=== PATIENT | female | born 1970 | race Caucasian/White ===

== ENCOUNTER 2016-05-28 19:54 | Emergency (ER) | payer SELFPAY ==
[~2016-05-28 19:54] MED LIST: PROZ20CA11 PO
--- NOTE | 2016-05-28 21:20 | REP ---
Clinical: Trauma. Technique: AP, lateral, bilateral oblique views of the right ankle. Findings: Lateral soft tissue swelling consistent with inversion injury. No acute fracture or dislocation identified. Joint spaces and ankle mortise appear intact. Impression: Lateral soft tissue swelling. Signed by Kurt Garcia MD 05/28/2016 09:11 P
[2016-05-28] MEDS ORDERED: ACETAMINOPHEN/CODEINE #3 TABLET (BULK) As Ordered ONE (21:48)
[2016-05-28] MEDS ORDERED: ACETAMINOPH W/CODEINE #3 TAB UD As Ordered ONE ×2 (21:48→21:49)
--- NOTE | 2016-05-28 22:12 | EDDOCDS ---
Physician Documentation [facility] Name: Mary Huerta Age: 45 yrs Sex: Female : 1970 Arrival Date: 05/28/2016 Time: 19:54 Bed 14 Private MD: No Pcp Disposition: 05/28 21:38 Critical Care: Critical care not applicable. pc Disposition: 05/28/16 21:44 Discharged to Home/Self Care. Impression: Sprain of calcaneofibular ligament of right ankle. - Condition is Stable. - Discharge Instructions: Ankle Sprain, Crutch Use, Stirrup Ankle Brace. - Prescriptions for Ibuprofen 600 mg Oral Tablet - take 1 tablet by ORAL route every 6 hours As needed take with food; 30 tablet. Tylenol- Codeine #3 300-30 mg Oral Tablet - take 2 tablets by ORAL route every 6 hours As needed MDD: 8 tabs; 20 tablet. - Medication Reconciliation, Local Pharmacy Hours, Work Release Form - 3 day form. - Follow up: Orthopaedics, [facility]; When: Call to arrange an appointment; Reason: Recheck today's complaints, To establish care. - Problem is new. - Symptoms have improved. HPI: 21:38 This 45 yrs old Female presents to ER via Walkin/Carried/Asstd with pc complaints of Ankle Injury. 21:38 The history is obtained from the patient. She was walking down stairs, thought she was pc on the last stepped and slipped/fell down the last 2-3 steps. She rolled her ankle inward and felt a "pop". She struck her head but did not have any LOC and does not have any headache or neck pain. At their worst, the symptoms were a 6 out of 10. In the emergency department, the symptoms are a 6 out of 10. The patient has not experienced similar symptoms in the past. Historical: - Allergies: Bees; - Home Meds: 1. Prozac 20 mg Oral cap 1 cap once daily - PMHx: Depression; - PSHx: Laparoscopy; Colonoscopy; ; Hysterectomy; Bladder suspension; - The history from nurses notes was reviewed: and I agree with what is documented. - Social history: Smoking status: Patient uses tobacco products, current every day smoker. No barriers to communication noted, The patient speaks fluent Amharic. - : The pt / caregiver states he / she is not on anticoagulants. Home medication list is obtained from the patient. - Hospitalizations: : No recent hospitalization is reported. - Exposure Risk Screening:: None identified. - Immunization history:: All immunizations up-to-date. - Family history: Not pertinent. - Social history:: the patient smokes cigarettes the patient drinks alcohol, socially. 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 pc Exam: 21:38 General Appearance: alert, the patient is in mild distress. pc 21:38 EENT: normal eye inspection, ears, nose and throat normal, pharynx normal, mucous membranes moist 21:38 Neck: The exam reveals no acute abnormalities. ROM is normal and painless. No nuchal rigidity is noted.. 21:38 Extremities: grossly normal except: noted in the right ankle: pain, swelling, ROM decreased due to pain, NVT normal. 21:38 Neuro: no motor deficits, no sensory deficits. Vital Signs: 19:55 BP 138 / 86; Pulse 101; Resp 18 S; Temp 99.5(T); Pulse Ox 96% on R/A; Weight 62.14 kg / dd6 137 lbs (R); Height 5 ft. 5 in. (165.10 cm) (R); 22:02 BP 139 / 84; Pulse 76; Resp 18; Temp 97.5(O); Pulse Ox 96% on R/A; Pain 5/10; prudencio 19:55 Body Mass Index 22.80 (62.14 kg, 165.10 cm) dd6 MDM: 20:08 Ankle, Complete Ordered. EDMS 21:38 Differential Diagnosis: fall, right ankle sprain r/o fracture. Plan: imaging, meds. pc Data reviewed: old medical records, vital signs, nurses notes, all radiology studies and available results. Test interpretation: X-RAY - interpreted by Radiologist and personally reviewed, Ankle Right STS. The patient has been re-examined and re-evaluated. The patient's symptoms have markedly improved after treatment. Disposition: The historical points, examination findings, and any diagnostic results supporting the provided diagnosis, were discussed with the patient or legal guardian. The need for outpatient follow up with the provider listed on their discharge instructions was discussed. They were encouraged to return to [facility], or the nearest ED, if symptoms worsen/persist, or for any other questions/concerns. 21:43 Apply Air Cast to Patient. ordered. pc 21:43 Crutches ordered. pc 21:43 Acetaminophen-Codeine 300 mg-30 mg 2 tabs PO once ordered. pc 21:43 Acetaminophen-Codeine, 4 pack- 300 mg-30 mg 1 packets PO once; Dispense with patient. pc Take per package instructions. ordered. 21:43 Ankle, Complete Reviewed. pc Administered Medications: 21:55 Drug: Acetaminophen-Codeine 2 tabs [acetaminophen 300 mg-codeine 30 mg tablet (2 tabs)] jf3 Route: PO; 21:55 Drug: Acetaminophen-Codeine, 4 pack- 1 packets [acetaminophen 300 mg-codeine 30 mg jf3 tablet (1 tabs)] {Co-Signature: cf2 (Korin East RN).} Route: PO; Signatures: Dispatcher [employer] Gerson Bourne MD MD pc Smith, Mallory, RN RN ms18 Brendan Medina RN RN jf3 Korin East RN cf2 GALLO
--- NOTE | 2016-05-28 22:12 | EDDOCDS ---
Nurse's Notes [facility] Name: Mary Huerta Age: 45 yrs Sex: Female : 1970 Arrival Date: 05/28/2016 Time: 19:54 Bed 14 Private MD: No Pcp Diagnosis: Sprain of calcaneofibular ligament of right ankle Presentation: 05/28 20:00 Presenting complaint: Patient states: that she fell down 3 steps and rolled her R ankle ms18 and hit her head on the door. The patients lower extremity appears normal on examination. Adult Sepsis Screening: The patient does not have new or worsening altered mentation. Patient's respiratory rate is less than 22. Systolic blood pressure is greater than 100. Patient has a qSOFA score of 0- Negative Sepsis Screen. Suicide/Homicide risk assessment- the patient denies having any suicidal and/or homicidal ideations and does not present with any other emotional, behavioral or mental health complaints. Status: Patient is not a financial service representative or dependent. Transition of care: patient was not received from another setting of care. 20:00 Acuity: STEPHON Level 4 ms18 20:00 Method Of Arrival: Walkin/Carried/Asstd ms18 Triage Assessment: 20:03 General: Appears in no apparent distress, uncomfortable, Behavior is appropriate for ms18 age, cooperative. Pain: Location: right lateral malleolus Pain currently is 9 out of 10 on a pain scale. HIV screening NA for this visit Offered previously. Neurological: No deficits noted. Respiratory: No deficits noted. Derm: Skin is pink, warm & dry. Musculoskeletal: Capillary refill < 3 seconds Range of motion limited in right ankle No deformity noted Swelling present in right lateral malleolus Reports pain in right ankle. 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 Prozac 20 mg Oral cap 1 cap once daily - PMHx: Depression; - PSHx: Laparoscopy; Colonoscopy; ; Hysterectomy; Bladder suspension; - The history from nurses notes was reviewed: and I agree with what is documented. - Social history: Smoking status: Patient uses tobacco products, current every day smoker. No barriers to communication noted, The patient speaks fluent Turkish. - : The pt / caregiver states he / she is not on anticoagulants. Home medication list is obtained from the patient. - Hospitalizations: : No recent hospitalization is reported. - Exposure Risk Screening:: None identified. - Immunization history:: All immunizations up-to-date. - Family history: Not pertinent. - Social history:: the patient smokes cigarettes the patient drinks alcohol, socially. Screenin:09 Screening information is obtained from the patient. Fall risk: No risks identified. jf3 Assistance ADL's: requires no assistance with activities of daily living. Abuse/DV Screen: The patient / caregiver reports he/she is: not in a situation that causes fear, pain or injury. Nutritional screening: No deficits noted. Advance Directives: There is no active DNR order. home support is adequate. Assessment: 22:09 General: Appears in no apparent distress, comfortable, Behavior is cooperative. Pain: jf3 Location: right ankle Pain currently is 6 out of 10 on a pain scale. Neurological: Level of Consciousness is awake, alert, Oriented to person, place, time. Cardiovascular: Capillary refill < 3 seconds Chest pain is denied. Respiratory: Airway is patent Respiratory effort is even, unlabored, Respiratory pattern is regular, symmetrical, Denies shortness of breath at rest. Derm: Skin is pink, warm & dry. Musculoskeletal: Circulation, motion, and sensation intact Capillary refill < 3 seconds Signs and Symptoms of Compartment Syndrome: no signs of compartment syndrome. Vital Signs: 19:55 BP 138 / 86; Pulse 101; Resp 18 S; Temp 99.5(T); Pulse Ox 96% on R/A; Weight 62.14 kg dd6 (R); Height 5 ft. 5 in. (165.10 cm) (R); 22:02 BP 139 / 84; Pulse 76; Resp 18; Temp 97.5(O); Pulse Ox 96% on R/A; Pain 5/10; prudencio 19:55 Body Mass Index 22.80 (62.14 kg, 165.10 cm) dd6 Vitals: 19:55 Log In Time: May 28, 2016 at 19:53. dd6 ED Course: 19:55 Patient visited by Orlando Orellana PCA. dd6 19:55 No Pcp is Private Physician. dd6 19:55 Patient moved to Waiting dd6 19:57 Patient moved to Pre RCE dd6 20:03 Triage Initiated ms18 21:31 Patient moved to ar3 21:33 Gerson Figueroa MD is Attending Physician. pc 21:33 Patient visited by Gerson Figueroa MD. pc 21:39 Ankle, Complete Returned. EDMS [facility] pc 22:03 Patient visited by Yessenia Andujar PCA. prudencio 22:09 The patient / caregiver is instructed regarding the plan of care and ED course. jf3 22:09 No IV's were initiated during this patient's visit. No procedures done that require jf3 assistance. 22:11 Korin East,RN is Primary Nurse. cf2 22:11 Patient visited by Korin East,ANA MARIA. cf2 Administered Medications: 21:55 Drug: Acetaminophen-Codeine 2 tabs [acetaminophen 300 mg-codeine 30 mg tablet (2 tabs)] jf3 Route: PO; 21:55 Drug: Acetaminophen-Codeine, 4 pack- 1 packets [acetaminophen 300 mg-codeine 30 mg jf3 tablet (1 tabs)] {Co-Signature: cf2 (Korin East RN).} Route: PO; Order Results: Radiology Order: Ankle, Complete Test: Ankle, Complete REASON FOR EXAMINATION: Trauma; Clinical: Trauma.; ; Technique: AP, lateral, bilateral oblique views of the right ankle.; ; Findings: Lateral soft tissue swelling consistent with inversion injury. No; acute fracture or dislocation identified. Joint spaces and ankle mortise appear; intact.; ; Impression:; Lateral soft tissue swelling.; ; ; Signed by; Kurt Garcia MD 05/28/2016 09:11 P; Outcome: 21:44 Discharge ordered by Provider. pc 22:09 Discharge Assessment: Patient awake, alert and oriented x 3. No cognitive and/or jf3 functional deficits noted. Patient verbalized understanding of disposition instructions. patient administered narcotics - yes. Pt provided with safe discharge. The following High Risk Discharge criteria are identified: None. Discharged to home via wheelchair, with friend. Condition: stable. Discharge instructions given to patient, Instructed on discharge instructions, follow up and referral plans. medication usage, no driving heavy equipment, Rest, Ice, Compression and Elevation. Demonstrated understanding of instructions, medications, Pt was receptive of discharge instructions/ teaching. No special radiology studies were completed. Property :Personal belongings accompany Pt. 22:12 Patient left the ED. jf3 Signatures: Dispatcher [employer] EDMS Gerson Figueroa MD MD pc Orlando Orellana, GASOLINE DRAGLINE OPERATOR GASOLINE DRAGLINE OPERATOR dd6 Lena Burton, GASOLINE DRAGLINE OPERATOR GASOLINE DRAGLINE OPERATOR ar3 Yessenia Andujar, GASOLINE DRAGLINE OPERATOR GASOLINE DRAGLINE OPERATOR prudencio Mary FergusonRN RN ms18 Brendan Medina,ANA MARIA RN jf3 Korin East RN RN cf2 Korin East RN cf2 MTDD
--- NOTE | 2016-05-30 23:13 | EDDOCDS ---
Nurse's Notes [facility] Name: Mary Huerta Age: 45 yrs Sex: Female : 1970 Arrival Date: 05/28/2016 Time: 19:54 Bed 14 Private MD: No Pcp Diagnosis: Sprain of calcaneofibular ligament of right ankle Presentation: 05/28 20:00 Presenting complaint: Patient states: that she fell down 3 steps and rolled her R ankle ms18 and hit her head on the door. The patients lower extremity appears normal on examination. Adult Sepsis Screening: The patient does not have new or worsening altered mentation. Patient's respiratory rate is less than 22. Systolic blood pressure is greater than 100. Patient has a qSOFA score of 0- Negative Sepsis Screen. Suicide/Homicide risk assessment- the patient denies having any suicidal and/or homicidal ideations and does not present with any other emotional, behavioral or mental health complaints. Status: Patient is not a director volunteer services or dependent. Transition of care: patient was not received from another setting of care. 20:00 Acuity: STEPHON Level 4 ms18 20:00 Method Of Arrival: Walkin/Carried/Asstd ms18 Triage Assessment: 20:03 General: Appears in no apparent distress, uncomfortable, Behavior is appropriate for ms18 age, cooperative. Pain: Location: right lateral malleolus Pain currently is 9 out of 10 on a pain scale. HIV screening NA for this visit Offered previously. Neurological: No deficits noted. Respiratory: No deficits noted. Derm: Skin is pink, warm & dry. Musculoskeletal: Capillary refill < 3 seconds Range of motion limited in right ankle No deformity noted Swelling present in right lateral malleolus Reports pain in right ankle. 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 Prozac 20 mg Oral cap 1 cap once daily - PMHx: Depression; - PSHx: Laparoscopy; Colonoscopy; ; Hysterectomy; Bladder suspension; - The history from nurses notes was reviewed: and I agree with what is documented. - Social history: Smoking status: Patient uses tobacco products, current every day smoker. No barriers to communication noted, The patient speaks fluent American. - : The pt / caregiver states he / she is not on anticoagulants. Home medication list is obtained from the patient. - Hospitalizations: : No recent hospitalization is reported. - Exposure Risk Screening:: None identified. - Immunization history:: All immunizations up-to-date. - Family history: Not pertinent. - Social history:: the patient smokes cigarettes the patient drinks alcohol, socially. Screenin:09 Screening information is obtained from the patient. Fall risk: No risks identified. jf3 Assistance ADL's: requires no assistance with activities of daily living. Abuse/DV Screen: The patient / caregiver reports he/she is: not in a situation that causes fear, pain or injury. Nutritional screening: No deficits noted. Advance Directives: There is no active DNR order. home support is adequate. Assessment: 22:09 General: Appears in no apparent distress, comfortable, Behavior is cooperative. Pain: jf3 Location: right ankle Pain currently is 6 out of 10 on a pain scale. Neurological: Level of Consciousness is awake, alert, Oriented to person, place, time. Cardiovascular: Capillary refill < 3 seconds Chest pain is denied. Respiratory: Airway is patent Respiratory effort is even, unlabored, Respiratory pattern is regular, symmetrical, Denies shortness of breath at rest. Derm: Skin is pink, warm & dry. Musculoskeletal: Circulation, motion, and sensation intact Capillary refill < 3 seconds Signs and Symptoms of Compartment Syndrome: no signs of compartment syndrome. 22:11 General: Aircast applied to right ankle. Crutch training performed. Patient tolerated cf2 well. ++PMS to right foot before and after application. . Vital Signs: 19:55 BP 138 / 86; Pulse 101; Resp 18 S; Temp 99.5(T); Pulse Ox 96% on R/A; Weight 62.14 kg dd6 (R); Height 5 ft. 5 in. (165.10 cm) (R); 22:02 BP 139 / 84; Pulse 76; Resp 18; Temp 97.5(O); Pulse Ox 96% on R/A; Pain 5/10; prudencio 19:55 Body Mass Index 22.80 (62.14 kg, 165.10 cm) dd6 Vitals: 19:55 Log In Time: May 28, 2016 at 19:53. dd6 ED Course: 19:55 Patient visited by Orlando Orellana PCA. dd6 19:55 No Pcp is Private Physician. dd6 19:55 Patient moved to Waiting dd6 19:57 Patient moved to Pre RCE dd6 20:03 Triage Initiated ms18 21:31 Patient moved to 14 ar3 21:33 Gerson Figureoa MD is Attending Physician. pc 21:33 Patient visited by Gerson Figueroa MD. pc 21:39 Ankle, Complete [facility]ed. ED[facility] pc 22:03 Patient visited by Yessenia Andujar PCA. prudencio 22:09 The patient / caregiver is instructed regarding the plan of care and ED course. jf3 22:09 No IV's were initiated during this patient's visit. No procedures done that require jf3 assistance. 22:11 Korin East,RN is Primary Nurse. cf2 22:11 Patient visited by Korin East,ANA MARIA. cf2 22:22 [facility] Payment Agreement was scanned into [employer] and attached to record. gjb Administered Medications: 21:55 Drug: Acetaminophen-Codeine 2 tabs [acetaminophen 300 mg-codeine 30 mg tablet (2 tabs)] jf3 Route: PO; 21:55 Drug: Acetaminophen-Codeine, 4 pack- 1 packets [acetaminophen 300 mg-codeine 30 mg jf3 tablet (1 tabs)] {Co-Signature: cf2 (Korin East RN).} Route: PO; Order Results: Radiology Order: Ankle, Complete Test: Ankle, Complete REASON FOR EXAMINATION: Trauma; Clinical: Trauma.; ; Technique: AP, lateral, bilateral oblique views of the right ankle.; ; Findings: Lateral soft tissue swelling consistent with inversion injury. No; acute fracture or dislocation identified. Joint spaces and ankle mortise appear; intact.; ; Impression:; Lateral soft tissue swelling.; ; ; Signed by; Kurt Garcia MD 05/28/2016 09:11 P; Outcome: 21:44 Discharge ordered by Provider. pc 22:09 Discharge Assessment: Patient awake, alert and oriented x 3. No cognitive and/or jf3 functional deficits noted. Patient verbalized understanding of disposition instructions. patient administered narcotics - yes. Pt provided with safe discharge. The following High Risk Discharge criteria are identified: None. Discharged to home via wheelchair, with friend. Condition: stable. Discharge instructions given to patient, Instructed on discharge instructions, follow up and referral plans. medication usage, no driving heavy equipment, Rest, Ice, Compression and Elevation. Demonstrated understanding of instructions, medications, Pt was receptive of discharge instructions/ teaching. No special radiology studies were completed. Property :Personal belongings accompany Pt. 22:12 Patient left the ED. jf3 Signatures: Dispatcher [employer] EDMS Gerson Figueroa MD MD pc Desormeau, Daniell, PLANT CULTURE MANAGER PLANT CULTURE MANAGER dd6 Lena Burton, PLANT CULTURE MANAGER PLANT CULTURE MANAGER ar3 Yessenia Andujar, PLANT CULTURE MANAGER PLANT CULTURE MANAGER Mary Jiménez,RN RN ms18 Brendan Medina,RN RN jf3 Kylie Hussein Christina, RN RN cf2 Korin East RN cf2 Chart Complete MTDD
--- NOTE | 2016-05-30 23:13 | EDDOCDS ---
Physician Documentation [facility] Name: Mary Huerta Age: 45 yrs Sex: Female : 1970 Arrival Date: 05/28/2016 Time: 19:54 Bed 14 Private MD: No Pcp Disposition: 05/28 21:38 Critical Care: Critical care not applicable. pc Disposition: 05/28/16 21:44 Discharged to Home/Self Care. Impression: Sprain of calcaneofibular ligament of right ankle. - Condition is Stable. - Discharge Instructions: Ankle Sprain, Crutch Use, Stirrup Ankle Brace. - Prescriptions for Ibuprofen 600 mg Oral Tablet - take 1 tablet by ORAL route every 6 hours As needed take with food; 30 tablet. Tylenol- Codeine #3 300-30 mg Oral Tablet - take 2 tablets by ORAL route every 6 hours As needed MDD: 8 tabs; 20 tablet. - Medication Reconciliation, Local Pharmacy Hours, Work Release Form - 3 day form. - Follow up: Orthopaedics, [facility]; When: Call to arrange an appointment; Reason: Recheck today's complaints, To establish care. - Problem is new. - Symptoms have improved. HPI: 21:38 This 45 yrs old Female presents to ER via Walkin/Carried/Asstd with pc complaints of Ankle Injury. 21:38 The history is obtained from the patient. She was walking down stairs, thought she was pc on the last stepped and slipped/fell down the last 2-3 steps. She rolled her ankle inward and felt a "pop". She struck her head but did not have any LOC and does not have any headache or neck pain. At their worst, the symptoms were a 6 out of 10. In the emergency department, the symptoms are a 6 out of 10. The patient has not experienced similar symptoms in the past. Historical: - Allergies: Bees; - Home Meds: 1. Prozac 20 mg Oral cap 1 cap once daily - PMHx: Depression; - PSHx: Laparoscopy; Colonoscopy; ; Hysterectomy; Bladder suspension; - The history from nurses notes was reviewed: and I agree with what is documented. - Social history: Smoking status: Patient uses tobacco products, current every day smoker. No barriers to communication noted, The patient speaks fluent Khmer. - : The pt / caregiver states he / she is not on anticoagulants. Home medication list is obtained from the patient. - Hospitalizations: : No recent hospitalization is reported. - Exposure Risk Screening:: None identified. - Immunization history:: All immunizations up-to-date. - Family history: Not pertinent. - Social history:: the patient smokes cigarettes the patient drinks alcohol, socially. 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 pc Exam: 21:38 General Appearance: alert, the patient is in mild distress. pc 21:38 EENT: normal eye inspection, ears, nose and throat normal, pharynx normal, mucous membranes moist 21:38 Neck: The exam reveals no acute abnormalities. ROM is normal and painless. No nuchal rigidity is noted.. 21:38 Extremities: grossly normal except: noted in the right ankle: pain, swelling, ROM decreased due to pain, NVT normal. 21:38 Neuro: no motor deficits, no sensory deficits. Vital Signs: 19:55 BP 138 / 86; Pulse 101; Resp 18 S; Temp 99.5(T); Pulse Ox 96% on R/A; Weight 62.14 kg / dd6 137 lbs (R); Height 5 ft. 5 in. (165.10 cm) (R); 22:02 BP 139 / 84; Pulse 76; Resp 18; Temp 97.5(O); Pulse Ox 96% on R/A; Pain 5/10; prudencio 19:55 Body Mass Index 22.80 (62.14 kg, 165.10 cm) dd6 MDM: 20:08 Ankle, Complete Ordered. EDMS 21:38 Differential Diagnosis: fall, right ankle sprain r/o fracture. Plan: imaging, meds. pc Data reviewed: old medical records, vital signs, nurses notes, all radiology studies and available results. Test interpretation: X-RAY - interpreted by Radiologist and personally reviewed, Ankle Right STS. The patient has been re-examined and re-evaluated. The patient's symptoms have markedly improved after treatment. Disposition: The historical points, examination findings, and any diagnostic results supporting the provided diagnosis, were discussed with the patient or legal guardian. The need for outpatient follow up with the provider listed on their discharge instructions was discussed. They were encouraged to return to [facility], or the nearest ED, if symptoms worsen/persist, or for any other questions/concerns. 21:43 Apply Air Cast to Patient. ordered. pc 21:43 Crutches ordered. pc 21:43 Acetaminophen-Codeine 300 mg-30 mg 2 tabs PO once ordered. pc 21:43 Acetaminophen-Codeine, 4 pack- 300 mg-30 mg 1 packets PO once; Dispense with patient. pc Take per package instructions. ordered. 21:43 Ankle, Complete Reviewed. pc 22:22 [facility] Payment Agreement was scanned into [employer] and attached to record. gjbenito 22: Financial registration complete. gjb Administered Medications: 21:55 Drug: Acetaminophen-Codeine 2 tabs [acetaminophen 300 mg-codeine 30 mg tablet (2 tabs)] jf3 Route: PO; 21:55 Drug: Acetaminophen-Codeine, 4 pack- 1 packets [acetaminophen 300 mg-codeine 30 mg jf3 tablet (1 tabs)] {Co-Signature: cf2 (Korin East RN).} Route: PO; Signatures: Dispatcher [employer] Gerson Bourne MD MD pc Smith, Mallory, RN RN ms18 Brendan Medina RN RN jf3 Kylie Husseinb Korin East RN cf2 The chart was reviewed and I authenticate all verbal orders and agree with the evaluation and treatment provided.Attachments: :22 [facility] Payment Agreement gj Chart Complete MTDD
--- NOTE | 2016-05-30 23:13 | EDDOCDS ---
Physician Documentation [facility] Name: Mary Huerta Age: 45 yrs Sex: Female : 1970 Arrival Date: 05/28/2016 Time: 19:54 Bed 14 Private MD: No Pcp Disposition: 05/28 21:38 Critical Care: Critical care not applicable. pc Disposition: 05/28/16 21:44 Discharged to Home/Self Care. Impression: Sprain of calcaneofibular ligament of right ankle. - Condition is Stable. - Discharge Instructions: Ankle Sprain, Crutch Use, Stirrup Ankle Brace. - Prescriptions for Ibuprofen 600 mg Oral Tablet - take 1 tablet by ORAL route every 6 hours As needed take with food; 30 tablet. Tylenol- Codeine #3 300-30 mg Oral Tablet - take 2 tablets by ORAL route every 6 hours As needed MDD: 8 tabs; 20 tablet. - Medication Reconciliation, Local Pharmacy Hours, Work Release Form - 3 day form. - Follow up: Orthopaedics, [facility]; When: Call to arrange an appointment; Reason: Recheck today's complaints, To establish care. - Problem is new. - Symptoms have improved. HPI: 21:38 This 45 yrs old Female presents to ER via Walkin/Carried/Asstd with pc complaints of Ankle Injury. 21:38 The history is obtained from the patient. She was walking down stairs, thought she was pc on the last stepped and slipped/fell down the last 2-3 steps. She rolled her ankle inward and felt a "pop". She struck her head but did not have any LOC and does not have any headache or neck pain. At their worst, the symptoms were a 6 out of 10. In the emergency department, the symptoms are a 6 out of 10. The patient has not experienced similar symptoms in the past. Historical: - Allergies: Bees; - Home Meds: 1. Prozac 20 mg Oral cap 1 cap once daily - PMHx: Depression; - PSHx: Laparoscopy; Colonoscopy; ; Hysterectomy; Bladder suspension; - The history from nurses notes was reviewed: and I agree with what is documented. - Social history: Smoking status: Patient uses tobacco products, current every day smoker. No barriers to communication noted, The patient speaks fluent Croatian. - : The pt / caregiver states he / she is not on anticoagulants. Home medication list is obtained from the patient. - Hospitalizations: : No recent hospitalization is reported. - Exposure Risk Screening:: None identified. - Immunization history:: All immunizations up-to-date. - Family history: Not pertinent. - Social history:: the patient smokes cigarettes the patient drinks alcohol, socially. 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 pc Exam: 21:38 General Appearance: alert, the patient is in mild distress. pc 21:38 EENT: normal eye inspection, ears, nose and throat normal, pharynx normal, mucous membranes moist 21:38 Neck: The exam reveals no acute abnormalities. ROM is normal and painless. No nuchal rigidity is noted.. 21:38 Extremities: grossly normal except: noted in the right ankle: pain, swelling, ROM decreased due to pain, NVT normal. 21:38 Neuro: no motor deficits, no sensory deficits. Vital Signs: 19:55 BP 138 / 86; Pulse 101; Resp 18 S; Temp 99.5(T); Pulse Ox 96% on R/A; Weight 62.14 kg / dd6 137 lbs (R); Height 5 ft. 5 in. (165.10 cm) (R); 22:02 BP 139 / 84; Pulse 76; Resp 18; Temp 97.5(O); Pulse Ox 96% on R/A; Pain 5/10; prudencio 19:55 Body Mass Index 22.80 (62.14 kg, 165.10 cm) dd6 MDM: 20:08 Ankle, Complete Ordered. EDMS 21:38 Differential Diagnosis: fall, right ankle sprain r/o fracture. Plan: imaging, meds. pc Data reviewed: old medical records, vital signs, nurses notes, all radiology studies and available results. Test interpretation: X-RAY - interpreted by Radiologist and personally reviewed, Ankle Right STS. The patient has been re-examined and re-evaluated. The patient's symptoms have markedly improved after treatment. Disposition: The historical points, examination findings, and any diagnostic results supporting the provided diagnosis, were discussed with the patient or legal guardian. The need for outpatient follow up with the provider listed on their discharge instructions was discussed. They were encouraged to return to [facility], or the nearest ED, if symptoms worsen/persist, or for any other questions/concerns. 21:43 Apply Air Cast to Patient. ordered. pc 21:43 Crutches ordered. pc 21:43 Acetaminophen-Codeine 300 mg-30 mg 2 tabs PO once ordered. pc 21:43 Acetaminophen-Codeine, 4 pack- 300 mg-30 mg 1 packets PO once; Dispense with patient. pc Take per package instructions. ordered. 21:43 Ankle, Complete Reviewed. pc 22:22 [facility] Payment Agreement was scanned into [employer] and attached to record. gjbenito 22: Financial registration complete. gjb Administered Medications: 21:55 Drug: Acetaminophen-Codeine 2 tabs [acetaminophen 300 mg-codeine 30 mg tablet (2 tabs)] jf3 Route: PO; 21:55 Drug: Acetaminophen-Codeine, 4 pack- 1 packets [acetaminophen 300 mg-codeine 30 mg jf3 tablet (1 tabs)] {Co-Signature: cf2 (Korin East RN).} Route: PO; Signatures: Dispatcher [employer] Gerson Bourne MD MD pc Smith, Mallory, RN RN ms18 Brendan Medina RN RN jf3 Kylie Husseinb Korin East RN cf2 The chart was reviewed and I authenticate all verbal orders and agree with the evaluation and treatment provided.Attachments: :22 [facility] Payment Agreement gj Chart Complete MTDD
== END 2016-05-28 22:12 | disposition home or self-care (01) ==
LOC: M ED 19:54
DX: S93.411A Sprain of calcaneofibular ligament of right ankle, initial encounter (principal); W10.9XXA Fall (on) (from) unspecified stairs and steps, initial encounter; Y92.89 Other specified places as the place of occurrence of the external cause; Y93.01 Activity, walking, marching and hiking; Y99.0 Civilian activity done for income or pay; F32.9 Major depressive disorder, single episode, unspecified; Z72.0 Tobacco use; Z90.79 Acquired absence of other genital organ(s); Z79.899 Other long term (current) drug therapy; Z91.030 Bee allergy status

== ENCOUNTER 2016-11-04 15:00 | Emergency (ER) | payer SELFPAY ==
[~2016-11-04] VITALS: Ht 165.1 cm; Wt 61.7 kg
[2016-11-04 15:01] VITALS: BP 121/87
[2016-11-04] MEDS ORDERED: IBUP600T26 PO (15:57)
== END 2016-11-04 16:18 | disposition home or self-care (01) ==
LOC: M ED 15:57
DX: S93.402A Sprain of unspecified ligament of left ankle, initial encounter (principal); X50.9XXA Other and unspecified overexertion or strenuous movements or postures, initial encounter; Y92.830 Public park as the place of occurrence of the external cause; Y93.9 Activity, unspecified; Y99.9 Unspecified external cause status; F17.200 Nicotine dependence, unspecified, uncomplicated; Z79.899 Other long term (current) drug therapy; Z91.030 Bee allergy status

== ENCOUNTER 2017-03-23 12:59 | Emergency (ER) | payer SELFPAY ==
[~2017-03-23] VITALS: Ht 165.1 cm; Wt 58.2 kg
[~2017-03-23 12:59] MED LIST changes: +IBUP-1022 PO
[2017-03-23] MEDS ORDERED: ONDANSETRON 4MG/2ML VIAL (J2405) IV ONE (13:30)
[2017-03-23] MEDS ORDERED: NS 500 ML IV ONE (13:30)
[2017-03-23] MEDS ORDERED: ASPIRIN 81 MG CHEW TABLET PO ONE (13:30)
[2017-03-23 13:36] LABS: BASO % 0.5 % (0.0-1.0); EOS # 0.1 10^3/uL (0.0-0.50); EOS % 1.4 % (0.0-3.0); IMMATURE GRANULOCYTE % 0.5 % (0-0); LYMPH # 3.4 10^3/uL (1.5-4.5); LYMPH % 39.5 % (24.0-44.0); MEAN CORPUSCULAR HEMOGLOBIN 31.9 pg (27.0-33.0); MEAN CORPUSCULAR HGB CONC 34.8 g/dl (32.0-36.5); MEAN CORPUSCULAR VOLUME 91.7 fl (80.0-96.0); MONO # 0.6 10^3/uL (0.0-0.8); MONO % 6.7 % (0.0-5.0); NEUTROPHILS # 4.5 10^3/uL (1.8-7.7); NEUTROPHILS % 51.4 % (36.0-66.0); PLATELET COUNT, AUTOMATED 364 10^3/uL (150-450); WHITE BLOOD COUNT 8.7 10^3/uL (4.0-10.0)
[2017-03-23] MEDS: MORPHINE 2 MG/ML 1ML SYRINGE IV PRN ×2 (13:44→14:31)
[2017-03-23 13:57] LABS: ALBUMIN 3.9 GM/DL (3.2-5.2); ALBUMIN/GLOBULIN RATIO 1.11 (1.00-1.93); ALKALINE PHOSPHATASE 89 U/L (45-117); ALT/SGPT 21 U/L (12-78); ANION GAP 7 MEQ/L (8-16); AST/SGOT 14 U/L (7-37); BILIRUBIN,DIRECT < 0.1 MG/DL (0.0-0.2); BILIRUBIN,TOTAL 0.3 MG/DL (0.2-1.0); BLOOD UREA NITROGEN 10 MG/DL (7-18); CALCIUM LEVEL 9.5 MG/DL (8.5-10.1); CARBON DIOXIDE LEVEL 28 MEQ/L (21-32); CHLORIDE LEVEL 107 MEQ/L (98-107); CREATININE FOR GFR 0.67 MG/DL (0.55-1.02); FREE T4 0.99 NG/DL (0.76-1.46); GLOMERULAR FILTRATION RATE > 60.0 (>58); GLUCOSE, FASTING 85 MG/DL (70-105); POTASSIUM SERUM 3.3 MEQ/L (3.5-5.1); SODIUM LEVEL 142 MEQ/L (136-145); TOTAL PROTEIN 7.4 GM/DL (6.4-8.2)
--- NOTE | 2017-03-23 14:06 | REP ---
Portable chest x-ray: Single view. History: Chest pain. No comparison study. Findings: EKG monitoring electrodes overlie the chest. The lungs are well inflated. They are free of focal infiltrate. However, there is a noncalcified nodular opacity projecting in the right upper perihilar region measuring 7 mm in greatest diameter. The lung nodule is suspected. Chest CT study should be considered. There are some emphysematous changes in the right upper lobe as well. Pleural angles are sharp. Heart is not enlarged. Pulmonary vasculature is not increased. No significant bony abnormality is seen. Impression: 7 mm nodular opacity projecting in the right upper perihilar region. Consider chest CT. Otherwise no active disease. Some emphysematous changes in the right upper lobe. Signed by John Dixon MD 03/23/2017 01:58 P
[2017-03-23] MEDS ORDERED: POTASSIUM CHLORIDE 10 MEQ SR TABLET PO ONE (15:00)
[2017-03-23] MEDS ORDERED: ISOVUE-370 76% 100ML VIAL (Q9967) As Ordered ONE (15:14)
[2017-03-23] MEDS ORDERED: diphenhydrAMINE INJ 50MG/ML VIAL (J1200) IV STA (15:26)
[2017-03-23] MEDS ORDERED: FAMOTIDINE INJ 20MG/2ML VIAL (S0028) IVP ONE (15:30)
[2017-03-23] MEDS ORDERED: methylPREDNISolone INJ 125 MG/2 ML VIAL (J2930) IV ONE (15:30)
[2017-03-23] MEDS ORDERED: PERC5TAB12 PO (16:34)
[2017-03-23 16:50] VITALS: BP 122/76
--- NOTE | 2017-03-23 18:43 | ECGEPIP ---
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
--- NOTE | 2017-03-24 09:10 | ED PDOC ---
Post-Departure Follow-Up [facility] FAXED FORMAL REPORT OF CXR FOR FU Shanna Green MD Mar 24, 2017 09:10
== END 2017-03-23 16:52 | disposition home or self-care (01) ==
LOC: M ED 12:59
DX: R07.9 Chest pain, unspecified (principal); R91.8 Other nonspecific abnormal finding of lung field; F17.210 Nicotine dependence, cigarettes, uncomplicated; Z91.041 Radiographic dye allergy status; Z91.030 Bee allergy status; Z82.49 Family history of ischemic heart disease and other diseases of the circulatory system
CPT/HCPCS: 71010; 80048; 80076; 82550; 82553; 84439; 84443; 85025; 85379; 93005; 93041; 94760; 96374; 96375; 96376; 99284; J1200; J2405; J2930

== ENCOUNTER 2017-07-05 07:43 | Emergency (ER) | payer SELFPAY ==
[2017-07-05] MEDS: KETOROLAC 60 MG/2 ML VIAL (J1885) IM (08:30)
[2017-07-05] MEDS: ONDANSETRON 4 MG ORAL DISINTEGRATING TAB (S0181) PO (08:30)
[2017-07-05 09:04] LABS: INFLUENZA A AMPLIFICATION POSITIVE (NEGATIVE); INFLUENZA B AMPLIFICATION NEGATIVE (NEGATIVE)
== END 2017-07-05 09:29 | disposition home or self-care (01) ==
LOC: M ED 07:43
DX: J09.X2 Influenza due to identified novel influenza A virus with other respiratory manifestations (principal); J20.9 Acute bronchitis, unspecified; Z20.828 Contact with and (suspected) exposure to other viral communicable diseases; F32.9 Major depressive disorder, single episode, unspecified; F17.210 Nicotine dependence, cigarettes, uncomplicated; Z91.041 Radiographic dye allergy status; Z91.030 Bee allergy status
CPT/HCPCS: J1885

== ENCOUNTER 2018-04-09 07:11 | Emergency (ER) | payer OTHER, SELFPAY | END 2018-04-09 08:17 | disposition home or self-care (01) | LOC: M ED 07:11 | DX: S60.031A Contusion of right middle finger without damage to nail, initial encounter (principal); W23.0XXA Caught, crushed, jammed, or pinched between moving objects, initial encounter; Y92.410 Unspecified street and highway as the place of occurrence of the external cause; F33.9 Major depressive disorder, recurrent, unspecified; Z91.041 Radiographic dye allergy status; Z91.030 Bee allergy status | CPT/HCPCS: 73130 ==

== ENCOUNTER 2018-11-29 11:47 | Emergency (ER) | payer SELFPAY ==
[~2018-11-29] VITALS: Ht 165.1 cm; Wt 62.3 kg
[~2018-11-29 11:47] MED LIST changes: +PERC5TAB12 PO; +TYLE325T5 PO
[2018-11-29] MEDS ORDERED: NS 500 ML IV ONE (12:00)
[2018-11-29] MEDS ORDERED: NS 1,000 ML IV ONE (12:15)
--- NOTE | 2018-11-29 12:23 | REP ---
Clinical: Syncope/near syncope. Comparison: 07/05/2017. Findings: Mediastinum and cardiac silhouette are within normal limits and stable. Lung horne demonstrate stable visual changes including prominent emphysematous changes to the right mid/upper lung zone and to a lesser extent involving the left upper lung zone. No focal consolidation. No effusion. No pneumothorax. Skeletal structures intact. Impression: Chronic stable changes. No acute cardiopulmonary process. Electronically Signed by Kurt Garcia MD 11/29/2018 12:15 P
[2018-11-29] MEDS ORDERED: ACETAMINOPHEN TAB 650MG DOSE (2X325MG) PO ONE (12:30)
[2018-11-29 12:33] LABS: BASO % 0.3 % (0.0-1.0); EOS # 0.1 10^3/uL (0.0-0.50); EOS % 1.2 % (0.0-3.0); HEMATOCRIT 37.9 % (36.0-47.0); HEMOGLOBIN 13.5 g/dl (12.0-15.5); LYMPH # 2.9 10^3/uL (1.5-4.5); LYMPH % 38.5 % (24.0-44.0); MEAN CORPUSCULAR HEMOGLOBIN 33.8 pg (27.0-33.0); MEAN CORPUSCULAR HGB CONC 35.6 g/dl (32.0-36.5); MEAN CORPUSCULAR VOLUME 94.8 fl (80.0-96.0); MONO # 0.5 10^3/uL (0.0-0.8); MONO % 7.2 % (0.0-5.0); NEUTROPHILS # 3.9 10^3/uL (1.8-7.7); NEUTROPHILS % 52.5 % (36.0-66.0); PLATELET COUNT, AUTOMATED 319 10^3/uL (150-450); WHITE BLOOD COUNT 7.5 10^3/uL (4.0-10.0)
--- NOTE | 2018-11-29 12:43 | REP ---
Clinical: Syncope . Comparison: None . Findings: The ventricles, sulci, and cisterns are normal in position and appearance. Dykes-white differentiation is maintained. No acute intracranial hemorrhage, mass/mass effect, pathology or trauma/injury. No evidence for acute infarction. No extra-axial fluid collection. Calvarium is intact. Paranasal sinuses and mastoid air cells are clear. Impression: Normal noncontrast head CT. No evidence for acute intracranial pathology or trauma/injury. Electronically Signed by Kurt Garcia MD 11/29/2018 12:34 P
[2018-11-29 13:05] LABS: BLOOD UREA NITROGEN 14 MG/DL (7-18); CALCIUM LEVEL 8.4 MG/DL (8.5-10.1); CARBON DIOXIDE LEVEL 24 MEQ/L (21-32); CHLORIDE LEVEL 109 MEQ/L (98-107); CPK CREATINE PHOSPHOKINASE 144 U/L (26-192); CREATININE FOR GFR 0.58 MG/DL (0.55-1.30); GLOMERULAR FILTRATION RATE > 60.0 (>51); GLUCOSE, FASTING 87 MG/DL (70-100); MAGNESIUM LEVEL 1.7 MG/DL (1.8-2.4); MB/CK RELATIVE INDEX 1.39 (< OR =4); POTASSIUM SERUM 3.8 MEQ/L (3.5-5.1); SODIUM LEVEL 141 MEQ/L (136-145); THYROID STIMULATING HORMONE 0.625 uIU/ML (0.358-3.740); TROPONIN I < 0.02 NG/ML (< 0.10)
[2018-11-29 13:48] VITALS: BP 122/80
--- NOTE | 2018-11-29 14:06 | ECGEPIP ---
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
== END 2018-11-29 14:47 | disposition home or self-care (01) ==
LOC: EDBD 11:47 → M ED 11:47
DX: R55 Syncope and collapse (principal); Z91.030 Bee allergy status; Z91.041 Radiographic dye allergy status

== ENCOUNTER 2019-01-14 21:11 | Emergency (ER) | payer SELFPAY ==
[~2019-01-14] VITALS: Ht 165.1 cm; Wt 54.5 kg
[2019-01-14 21:59] LABS: BASO % 0.3 % (0.0-1.0); EOS # 0.2 10^3/uL (0.0-0.50); EOS % 1.5 % (0.0-3.0); HEMATOCRIT 38.8 % (36.0-47.0); HEMOGLOBIN 13.4 g/dl (12.0-15.5); LYMPH % 25.5 % (24.0-44.0); MEAN CORPUSCULAR HEMOGLOBIN 33.2 pg (27.0-33.0); MEAN CORPUSCULAR HGB CONC 34.5 g/dl (32.0-36.5); MONO % 8.9 % (0.0-5.0); NEUTROPHILS # 7.4 10^3/uL (1.8-7.7); NEUTROPHILS % 63.4 % (36.0-66.0); PLATELET COUNT, AUTOMATED 312 10^3/uL (150-450); RED BLOOD COUNT 4.04 10^6/uL (4.00-5.40); WHITE BLOOD COUNT 11.7 10^3/uL (4.0-10.0)
[2019-01-14] MEDS ORDERED: IPRATROPIUM 0.5MG/ALBUTEROL 2.5MG INH SOL UD 3ML (DUONEB)(J7620) NEB ONE (22:15)
[2019-01-14 22:25] LABS: BLOOD UREA NITROGEN 11 MG/DL (7-18); CALCIUM LEVEL 8.9 MG/DL (8.5-10.1); CARBON DIOXIDE LEVEL 24 MEQ/L (21-32); CHLORIDE LEVEL 109 MEQ/L (98-107); CK-MB VALUE MASS 1.2 NG/ML (<3.6); CPK CREATINE PHOSPHOKINASE 131 U/L (26-192); CREATININE FOR GFR 0.59 MG/DL (0.55-1.30); GLOMERULAR FILTRATION RATE > 60.0 (>51); GLUCOSE, FASTING 97 MG/DL (70-100); MB/CK RELATIVE INDEX 0.92 (< OR =4); SODIUM LEVEL 140 MEQ/L (136-145); TROPONIN I < 0.02 NG/ML (< 0.10)
[2019-01-15] MEDS ORDERED: AZIT-12 PO (00:20)
[2019-01-15] MEDS ORDERED: PRED20TA PO (00:20)
[2019-01-15 00:30] VITALS: BP 134/75
[2019-01-15] MEDS ORDERED: ALBUTEROL 90 MCG/ACT 8GM HFA INHALER INH ONE (00:30)
[2019-01-15] MEDS ORDERED: methylPREDNISolone INJ 40 MG/1 ML VIAL (J2920) IV ONE (00:30)
[2019-01-15] MEDS ORDERED: AZITHROMYCIN 250 MG TAB PO ONE (00:30)
--- NOTE | 2019-01-15 07:49 | REP ---
Portable chest, 09:30 p.m., single AP view with the patient upright: Comparison is 11/29/2018. The lung horne are clear. The cardiac size is normal. The inderjit, mediastinum, and skeletal structures are unremarkable. Impression: Negative portable chest. There is no interval change. Electronically Signed by Jorge Polanco MD 01/15/2019 07:40 A
--- NOTE | 2019-01-15 13:40 | ECGEPIP ---
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
== END 2019-01-15 00:47 | disposition home or self-care (01) ==
LOC: M ED 21:11
DX: J20.9 Acute bronchitis, unspecified (principal); I45.4 Nonspecific intraventricular block; Z72.0 Tobacco use
CPT/HCPCS: 71045; 80048; 82550; 82553; 84484; 85025; 93005; 93041; 94640; 94760; 96374; 99285; J2920

== ENCOUNTER 2020-01-21 08:40 | Emergency (ER) | payer SELFPAY ==
[~2020-01-21] VITALS: Ht 165.1 cm; Wt 50.2 kg
[~2020-01-21 08:40] MED LIST changes: +AZIT-12 PO; +PRED20TA PO
[2020-01-21 10:16] LABS: HEMATOCRIT 42.2 % (36.0-47.0); HEMOGLOBIN 14.2 g/dl (12.0-15.5); MEAN CORPUSCULAR HEMOGLOBIN 32.8 pg (27.0-33.0); MEAN CORPUSCULAR HGB CONC 33.6 g/dl (32.0-36.5); MEAN CORPUSCULAR VOLUME 97.5 fl (80.0-96.0); PLATELET COUNT, AUTOMATED 372 10^3/uL (150-450); RED BLOOD COUNT 4.33 10^6/uL (4.00-5.40)
--- NOTE | 2020-01-21 10:20 | REPVR ---
PROCEDURE INFORMATION: Exam: XR Chest, 1 View Exam date and time: 01/21/2020 10:00 AM Age: 49 years old Clinical indication: Chest pain TECHNIQUE: Imaging protocol: XR of the chest Views: 1 view. COMPARISON: [place] PORTABLE CHEST X-RAY 01/14/2019 9:29 PM FINDINGS: Lungs: Lungs are hyperinflated with upper lobe predominant pulmonary emphysema, right greater than left. Chronic diffuse interstitial prominence and mild biapical pleural-parenchymal fibrosis appears unchanged. Bilateral skin folds are noted. No evidence of airspace consolidation. Pleural space: No significant pleural effusions. No pneumothorax. Heart/Mediastinum: Cardiac size is normal and mediastinal contour stable. Bones/joints: Bones are stable. IMPRESSION: Chronic lung changes with pulmonary emphysema. No acute abnormalities are identified. Electronically signed by: Kurt Alvarez On 01/21/2020 10:21:08 AM
[2020-01-21 10:30] VITALS: BP 123/76
[2020-01-21 10:46] LABS: BLOOD UREA NITROGEN 12 MG/DL (7-18); CALCIUM LEVEL 9.2 MG/DL (8.5-10.1); CARBON DIOXIDE LEVEL 29 MEQ/L (21-32); CHLORIDE LEVEL 108 MEQ/L (98-107); CK-MB VALUE MASS 1.8 NG/ML (<3.6); CPK CREATINE PHOSPHOKINASE 115 U/L (26-192); CREATININE FOR GFR 0.65 MG/DL (0.55-1.30); GLOMERULAR FILTRATION RATE > 60.0 (>51); GLUCOSE, FASTING 87 MG/DL (70-100); MB/CK RELATIVE INDEX 1.57 (< OR =4); POTASSIUM SERUM 3.8 MEQ/L (3.5-5.1); SODIUM LEVEL 141 MEQ/L (136-145); TROPONIN I < 0.02 NG/ML (< 0.10)
--- NOTE | 2020-02-09 15:56 | ECGEPIP ---
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
== END 2020-01-21 11:03 | disposition home or self-care (01) ==
LOC: M ED 08:40
DX: R07.89 Other chest pain (principal); J43.9 Emphysema, unspecified; R42 Dizziness and giddiness; F12.10 Cannabis abuse, uncomplicated; F11.11 Opioid abuse, in remission; F17.210 Nicotine dependence, cigarettes, uncomplicated; Z91.041 Radiographic dye allergy status; Z91.030 Bee allergy status

== ENCOUNTER 2020-11-06 10:25 | Emergency (ER) | payer SELFPAY ==
[~2020-11-06] VITALS: Ht 165.1 cm; Wt 53.1 kg
--- NOTE | 2020-11-06 11:15 | REP ---
INDICATION: cough. COMPARISON: Comparison chest x-ray January 21, 2020. TECHNIQUE: Two views.. FINDINGS: The lungs show overall hyperinflation. There are all eg make/emphysematous changes in the upper lobes bilaterally, right more extensively than left. This is unchanged. The pleural angles are sharp. No focal infiltrate is seen. The heart is not enlarged. Pulmonary vasculature is not increased. IMPRESSION: Evidence of hyperinflation and bilateral upper lobe emphysematous changes. No acute infiltrate.. <Electronically signed by Timothy Dixon > 11/06/20 1111
[2020-11-06] MEDS ORDERED: ACETAMINOPHEN 325 MG TAB PO ONE (12:25)
[2020-11-06] MEDS ORDERED: NS 1,000 ML IV ONE (12:35)
[2020-11-06 12:44] LABS: ALT/SGPT 23 U/L (12-78); BILIRUBIN,DIRECT < 0.1 MG/DL (0.0-0.2); BILIRUBIN,TOTAL 0.4 MG/DL (0.2-1.0); C REACTIVE PROTEIN QUANTITATIV 1.36 MG/DL (0.00-0.30); CK-MB VALUE MASS < 1.0 NG/ML (<3.6); CPK CREATINE PHOSPHOKINASE 136 U/L (26-192); MB/CK RELATIVE INDEX 0.74 (< OR =4); TOTAL PROTEIN 7.1 GM/DL (6.4-8.2); TROPONIN I < 0.02 NG/ML (< 0.10)
[2020-11-06 12:47] LABS: BASO % 0.3 % (0.0-1.0); EOS % 0.6 % (0.0-3.0); HEMATOCRIT 44.7 % (36.0-47.0); HEMOGLOBIN 15.5 g/dl (12.0-15.5); LYMPH % 29.4 % (24.0-44.0); MEAN CORPUSCULAR HEMOGLOBIN 32.5 pg (27.0-33.0); MEAN CORPUSCULAR HGB CONC 34.7 g/dl (32.0-36.5); MEAN CORPUSCULAR VOLUME 93.7 fl (80.0-96.0); MONO # 0.8 10^3/uL (0.0-0.8); MONO % 12.6 % (2.0-8.0); NEUTROPHILS # 3.8 10^3/uL (1.5-8.5); NEUTROPHILS % 56.7 % (36.0-66.0); PLATELET COUNT, AUTOMATED 322 10^3/uL (150-450); RED BLOOD COUNT 4.77 10^6/uL (4.00-5.40); WHITE BLOOD COUNT 6.7 10^3/uL (4.0-10.0)
[2020-11-06 13:14] LABS: ERYTHROCYTE SEDIMENTATION RATE 26 mm/hr (0-30)
[2020-11-06] MEDS ORDERED: ONDANSETRON 4MG/2ML VIAL IV ONE (14:05)
[2020-11-06] MEDS ORDERED: ZOFR4TAB16 PO (14:51)
[2020-11-06 14:56] VITALS: BP 118/90
--- NOTE | 2020-11-07 16:54 | ECGEPIP ---
[facility] - ED Test Date: 2020-11-06 Pat Name: LAURA LAMAR Department: Room: - Gender: Female Solution Maker: : 1970 Requested By: NEAL West PA-C Order Number: [id number] Reading MD: Brenda Pablo Measurements Intervals [place] Rate: 77 P: 75 AR: 182 QRS: 130 QRSD: 94 T: 70 QT: 380 QTc: 430 Interpretive Statements Normal sinus rhythm Left posterior fascicular block increased rate 01/21/20 Electronically Signed on 11-07-2020 16:54:23 EDT by Brenda Pablo
== END 2020-11-06 15:57 | disposition home or self-care (01) ==
LOC: M ED 10:25
DX: J09.X2 Influenza due to identified novel influenza A virus with other respiratory manifestations (principal); I44.5 Left posterior fascicular block; J43.9 Emphysema, unspecified; Z87.442 Personal history of urinary calculi; F17.200 Nicotine dependence, unspecified, uncomplicated; Z91.041 Radiographic dye allergy status; Z91.030 Bee allergy status
CPT/HCPCS: 71046; 80047; 80076; 82550; 82553; 84484; 85025; 85652; 86140; 87804; 93005; 96361; 96374; 99284; J2405; U0002